=== PATIENT | female | born 1950 | race Caucasian/White ===

== ENCOUNTER 2016-09-08 02:24 | Emergency (ER) | payer BC ==
[~2016-09-08] VITALS: Ht 152.4 cm; Wt 90.7 kg
[2016-09-08 02:30] VITALS: BP 152/67; PULSE 87; RESP 19; TEMP 98.3; O2SAT 98
[2016-09-08 03:57] VITALS: BP 145/64; PULSE 86; RESP 19; TEMP 98.3; O2SAT 98
== END 2016-09-08 03:57 | disposition home or self-care (01) ==
LOC: SED 02:24
DX: M25.562 Pain in left knee (principal); R06.00 Dyspnea, unspecified; Z88.0 Allergy status to penicillin; W01.0XXA Fall on same level from slipping, tripping and stumbling without subsequent striking against object, initial encounter; Y93.89 Activity, other specified; Y92.89 Other specified places as the place of occurrence of the external cause; Y99.8 Other external cause status
CPT/HCPCS: 73564; 99284

== ENCOUNTER 2022-04-28 17:08 | Emergency (ER) | payer BC, OTHER ==
[~2022-04-28] VITALS: Ht 152.4 cm; Wt 89.8 kg
[2022-04-28 17:17] VITALS: BP_SYST 176
--- NOTE | 2022-04-28 17:30 | NUR ---
Pt brought by self,A&Ox4, pt presents to ER with R wrist pain and swelling after trip and fall, skin pink and warm, cap refill <3, VSS, will cont to monitor.
--- NOTE | 2022-04-28 18:00 | NUR ---
Placed in room H2 . Placed on director of cardiac cath lab, blood pressure machine and pulse oximeter. To gown for exam. Side rails up.
--- NOTE | 2022-04-28 18:01 | NUR ---
Dr Reyes evaluating patient at bedside
--- NOTE | 2022-04-28 18:03 | NUR ---
Pt bib self from home. CC right hand pain. Right hand with swelling, tissue tenderness to touch, pain 7/10.
--- NOTE | 2022-04-28 18:10 | NUR ---
RADHA Truong placing sugar tong splint to right arm with maria d bandage wrap and silk tape.
[2022-04-28] MEDS ORDERED: IBUP-1970 PO ×2 (18:14→18:34)
[2022-04-28] MEDS ORDERED: HYDR-3917 PO ×2 (18:14→18:34)
[2022-04-28] MEDS ORDERED: HYDROcodone/ACETAMIN 5-325 MG TAB (NORCO/ VICODIN) PO ONE (18:30)
[2022-04-28] MEDS ORDERED: IBUPROFEN 600 MG TABLET PO ONE (18:30)
--- NOTE | 2022-04-28 18:40 | NUR ---
Patient given written and verbal discharge instructions and verbalizes understanding. ER MD discussed with patient the results and treatment provided. Patient in stable condition. ID arm band removed. Rx of NORCO AND IBUPROFEN given. Patient educated on pain management and to follow up with PMD. Opportunity for questions provided and answered. Medication side effect fact sheet provided.
[2022-04-28 19:06] VITALS: BP_SYST 168
== END 2022-04-28 18:45 | disposition home or self-care (01) ==
LOC: SED 17:08
DX: S72.351A Displaced comminuted fracture of shaft of right femur, initial encounter for closed fracture (principal); S52.611A Displaced fracture of right ulna styloid process, initial encounter for closed fracture; Z88.0 Allergy status to penicillin; Z79.899 Other long term (current) drug therapy; W01.0XXA Fall on same level from slipping, tripping and stumbling without subsequent striking against object, initial encounter; Y93.89 Activity, other specified; Y92.89 Other specified places as the place of occurrence of the external cause; Y99.8 Other external cause status
CPT/HCPCS: 99283

== ENCOUNTER 2022-05-09 05:35 | Day surgery (SDC) | payer BC, OTHER ==
[2022-05-04 13:26] LABS: INR 0.9 (0.8-1.2); PROTHROMBIN TIME 9.4 SECS (9.5-12.5)
[2022-05-04 13:33] LABS: ALBUMIN 3.3 g/dL (3.4-4.8); CREATININE 0.7 mg/dL (0.55-1.30); TOTAL BILIRUBIN 0.6 mg/dL (0.0-1.0)
[2022-05-04 14:13] LABS: BILIRUBIN,URINE NEGATIVE (NEGATIVE); COLOR,URINE YELLOW (YELLOW); GLUCOSE,URINE NEGATIVE (NEGATIVE); KETONES,URINE NEGATIVE (NEGATIVE); NITRITE, URINE POSITIVE (NEGATIVE); PH,URINE 5.5 (5.0-8.0); PROTEIN URINE 1+ (NEGATIVE); UROBILINOGEN,URINE 0.2 (0.2-1.0)
[2022-05-04 14:22] LABS: BLOOD, URINE TRACE (NEGATIVE); CLARITY/URINE HAZY (CLEAR); LEUKOCYTE ESTERASE ,URINE 1+ (NEGATIVE)
[2022-05-04 14:23] LABS: BACTERIA,URINE MANY /HPF (None Seen); RBC,URINE 0-3 /HPF (0-3)
[2022-05-04 14:24] LABS: MUCUS,URINE None Seen /LPF (None Seen); OTHER CASTS, URINE CELLULAR 0-2 /LPF (None Seen)
[~2022-05-09] VITALS: Ht 152.4 cm; Wt 89.8 kg
[~2022-05-09 05:35] MED LIST: HYDR-3917 PO; IBUP-1970 PO
[2022-05-09] MEDS ORDERED: ROCURONIUM BROMIDE 10 MG/ML (ZEMURON) IV ONE (07:49)
[2022-05-09] MEDS ORDERED: fentaNYL CITRATE 250 MCG/5 ML AMP IV ONE (07:49)
[2022-05-09] MEDS ORDERED: PROPOFOL 200MG/ 20ML VIAL (DIPRIVAN) IV ONE (07:49)
[2022-05-09] MEDS ORDERED: LR 1,000 ML IV.SOLN IV ONE (07:49)
[2022-05-09] MEDS ORDERED: CEFAZOLIN 2 GM IVPB PREMIX 50 ML IV ONE (07:49)
[2022-05-09] MEDS ORDERED: DEXAMETHASONE SOD PHOSPHATE 4 MG/ML VIAL IVP ONE (07:49)
[2022-05-09] MEDS ORDERED: KETOROLAC TROMETHAMINE 30 MG VIAL IVP ONE (07:49)
[2022-05-09] MEDS ORDERED: SUGAMMADEX SODIUM 200 MG/2 ML VIAL IV ONE (07:49)
[2022-05-09] MEDS ORDERED: DESFLURANE 15 MIN GAS INH ONE (07:49)
[2022-05-09] MEDS ORDERED: MIDAZOLAM HCL 5 MG/5 ML VIAL IVP ONE (07:49)
[2022-05-09] MEDS ORDERED: NS IRRIG SOLN 1000 ML IR ONE (07:49)
[2022-05-09] MEDS ORDERED: ONDANSETRON HCL 4 MG/2 ML VIAL IVP ONE (07:49)
[2022-05-09] MEDS ORDERED: BUPIVACAINE /EPINEPHRINE/PF 0.25% 30 ML VIAL INJ ONE (07:49)
[2022-05-09] MEDS ORDERED: LABETALOL 100 MG/ 20ML VIAL IVP PRN (08:45)
[2022-05-09] MEDS ORDERED: METOCLOPRAMIDE HCL 10 MG/2 ML VIAL IVP PRN (08:45)
[2022-05-09] MEDS ORDERED: MIDAZOLAM HCL 2 MG/2 ML VIAL (VERSED) IVP PRN (08:45)
[2022-05-09] MEDS ORDERED: LR 1,000 ML IV SCH (08:45)
[2022-05-09] MEDS ORDERED: HYDROmorphone 1 MG/ML INJ. CARTRIDGE IVP PRN ×2 (08:45)
[2022-05-09] MEDS ORDERED: MEPERIDINE HCL/PF 25 MG/ML DISP.SYRIN IVP PRN (08:45)
[2022-05-09] MEDS ORDERED: HYDROmorphone 1 MG/ML INJ. CARTRIDGE ONE (10:47)
[2022-05-09 13:21] VITALS: BP_SYST 162
== END 2022-05-09 12:55 | disposition home or self-care (01) ==
LOC: SMU 05:35 → SDS 05:35
PROVIDERS: ATTEND Student in an Organized Health Care Education/Training Program
DX: S52.501A Unspecified fracture of the lower end of right radius, initial encounter for closed fracture (principal); M17.0 Bilateral primary osteoarthritis of knee; Z79.01 Long term (current) use of anticoagulants; W19.XXXA Unspecified fall, initial encounter; Y93.89 Activity, other specified; Y92.89 Other specified places as the place of occurrence of the external cause; Y99.8 Other external cause status; Z20.822 Contact with and (suspected) exposure to COVID-19
CPT/HCPCS: 80053; 81000; 85610; 85730; 36415 ×2; 25609; 76000; 87426; U0003; J3490 ×2; J0690; J1100; J1885; J2250; J2405; J2704; J3010; J1170; J7120; C1769; C1713 ×9; 76001

== ENCOUNTER 2023-01-14 05:25 | Inpatient (IN) | payer BC, OTHER ==
[2023-01-08 10:15] LABS: BASOPHILS # (AUTO) 0.1 K/uL (0.0-0.2); BASOPHILS % (AUTO) 1.2 % (0.0-2.0); EOSINOPHILS # (AUTO) 0.3 K/uL (0.0-0.4); EOSINOPHILS % (AUTO) 3.9 % (0.0-4.0); HEMATOCRIT 46.7 % (36-48); HEMOGLOBIN 15.5 g/dL (12.0-16.0); LYMPHOCYTES # (AUTO) 1.7 K/uL (1.0-5.5); LYMPHOCYTES % (AUTO) 23.4 % (20.5-51.5); MEAN CORPUSCULAR HEMOGLOBIN 31 pg (27-31); MEAN CORPUSCULAR HGB CONC 33 % (32-36); MEAN CORPUSCULAR VOLUME 92 fL (79.0-98.0); MONOCYTES # (AUTO) 0.3 K/uL (0.0-1.0); MONOCYTES % (AUTO) 4.8 % (1.7-9.3); NEUTROPHILS # (AUTO) 4.8 K/uL (1.8-7.7); NEUTROPHILS % (AUTO) 66.7 % (40.0-70.0); PLATELET COUNT (AUTO) 298 K/uL (130-430); RED BLOOD CELL COUNT(AUTO) 5.05 MIL/uL (4.2-6.2); RED CELL DISTRIBUTION WIDTH 13.2 % (9.0-15.0); WHITE BLOOD COUNT (AUTO) 7.2 K/uL (4.8-10.8)
[2023-01-08 10:27] LABS: ALBUMIN 3.5 g/dL (3.4-4.8); CALCIUM 8.9 mg/dL (8.4-11.0); CREATININE 0.84 mg/dL (0.55-1.30); PROTHROMBIN TIME 9.9 SECS (9.5-12.5); TOTAL BILIRUBIN 0.7 mg/dL (0.0-1.0); TOTAL PROTEIN, SERUM 7.7 g/dL (6.4-8.3)
[~2023-01-14] VITALS: Ht 152.4 cm; Wt 89.8 kg
[2023-01-14] MEDS ORDERED: ACETAMINOPHEN 500 MG TABLET ONE (05:49)
[2023-01-14] MEDS ORDERED: oxyCODONE HCL 10 MG TAB.ER.12H PO ONE ×2 (05:50→06:00)
[2023-01-14] MEDS ORDERED: SCOPOLAMINE HYDROBROMIDE 1 MG PATCH .72 H (TRANSDERM-SCOP) TD ONE ×2 (05:50→06:00)
[2023-01-14] MEDS ORDERED: CELECOXIB 200 MG CAPSULE ONE (05:50)
[2023-01-14] MEDS ORDERED: CELECOXIB 200 MG CAPSULE PO ONE (06:00)
[2023-01-14] MEDS ORDERED: GABAPENTIN 400 MG CAPSULE PO ONE (06:00)
[2023-01-14] MEDS ORDERED: ACETAMINOPHEN 500 MG TABLET PO ONE (06:00)
[2023-01-14] MEDS ORDERED: CEFAZOLIN SOD 2 GM in D5W 50 ML IV ONE (07:15)
[2023-01-14] MEDS ORDERED: METOCLOPRAMIDE HCL 10 MG/2 ML VIAL IVP PRN ×2 (07:30→09:00)
[2023-01-14] MEDS ORDERED: LACTULOSE 20 GM/30 ML UDC PO PRN (07:30)
[2023-01-14] MEDS ORDERED: DIPHENHYDRAMINE HCL 25 MG CAPSULE PO PRN (07:30)
[2023-01-14] MEDS ORDERED: NALOXONE HCL 0.4 MG/ML AMP (NARCAN) IVP PRN ×4 (07:30→09:00)
[2023-01-14] MEDS ORDERED: BISACODYL 10 MG/SUPPOSITORY RC PRN (07:30)
[2023-01-14] MEDS ORDERED: TRANEXAMIC ACID 1,000 MG/10 ML VIAL ONE (08:00)
[2023-01-14] MEDS ORDERED: BUPIVACAINE /PF 0.5% 30 ML VIAL ONE (08:00)
[2023-01-14] MEDS ORDERED: MORPHINE SULFATE 10MG/10ML PF AMP ONE (08:00)
[2023-01-14] MEDS ORDERED: NS 1000 ML IV.SOLN IV ONE (08:00)
[2023-01-14] MEDS ORDERED: NS IRRIG SOLN 1000 ML IR ONE (08:00)
[2023-01-14] MEDS ORDERED: VANCOMYCIN HCL 1000 MG/VIAL IV ONE (08:00)
[2023-01-14] MEDS ORDERED: ONDANSETRON HCL 4 MG/2 ML VIAL ONE (08:00)
[2023-01-14] MEDS ORDERED: MIDAZOLAM HCL/PF 2 MG/2 ML SYRINGE ONE (08:00)
[2023-01-14] MEDS ORDERED: LR 1,000 ML IV.SOLN IV ONE (08:00)
[2023-01-14] MEDS ORDERED: WATER FOR IRRIGATION,STERILE 1,000 ML IRRIG.SOLN IR ONE (08:00)
[2023-01-14] MEDS ORDERED: DEXAMETHASONE SOD PHOSPHATE 4 MG/ML VIAL ONE (08:00)
[2023-01-14] MEDS ORDERED: PHENYLEPHRINE HCL 10 MG/ML VIAL (NEOSYNEPHRINE) ONE (08:00)
[2023-01-14] MEDS ORDERED: hydrALAZINE HCL 20 MG/ML VIAL IVP PRN (09:00)
[2023-01-14] MEDS ORDERED: DIPHENHYDRAMINE INJ 50 MG/ML VIAL IVP PRN (09:00)
[2023-01-14] MEDS ORDERED: HYDROmorphone 1 MG/ML INJ. CARTRIDGE IVP PRN ×5 (09:00→11:00)
[2023-01-14] MEDS ORDERED: ONDANSETRON HCL 4 MG/2 ML VIAL IVP PRN ×2 (09:00→11:45)
[2023-01-14] MEDS ORDERED: LR 1,000 ML IV SCH (09:00)
[2023-01-14] MEDS ORDERED: MEPERIDINE HCL/PF 25 MG/ML DISP.SYRIN IVP PRN (09:00)
[2023-01-14] MEDS ORDERED: LABETALOL 100 MG/ 20ML VIAL IVP PRN (09:00)
[2023-01-14] MEDS ORDERED: DECADRON 4 MG TABLET PO ONE (11:00)
[2023-01-14] MEDS ORDERED: oxyCODONE HCL 5 MG TABLET PO PRN ×2 (11:00)
[2023-01-14] MEDS ORDERED: traMADol HCL HCL 50 MG TABLET (ULTRAM) PO PRN (11:00)
[2023-01-14] MEDS ORDERED: LORATADINE 10 MG TABLET PO PRN (11:00)
[2023-01-14] MEDS ORDERED: VITD400 PO (11:52)
[2023-01-14] MEDS ORDERED: MULT-1164 PO (11:52)
[2023-01-14] MEDS: ceFAZolin SODIUM 2 GM in D5W 100 ML IV SCH ×2 (13:36→14:01)
[2023-01-14] MEDS: KETOROLAC TROMETHAMINE 10 MG TABLET (TORADOL) PO SCH ×2 (14:00→21:19)
[2023-01-14] MEDS: ACETAMINOPHEN 500 MG TABLET PO SCH ×2 (15:00→21:20)
[2023-01-14 17:38] VITALS: BP_SYST 117; PULSE 66; RESP 12; TEMP 96.9; O2SAT 95
[2023-01-14 20:00] VITALS: BP_SYST 140; PULSE 77; RESP 18; TEMP 97.7; O2SAT 99
[2023-01-14] MEDS: SENNOSIDES/DOCUSATE SODIUM 1 TAB TABLET(SENOKOT-S) PO SCH (21:20)
[2023-01-15 00:53] VITALS: BP_SYST 114; PULSE 61; RESP 16; TEMP 96.4; O2SAT 99
[2023-01-15] MEDS: ceFAZolin SODIUM 2 GM in D5W 100 ML IV SCH (03:34)
[2023-01-15 05:24] LABS: BASOPHILS % (AUTO) 0.1 % (0.0-2.0); HEMATOCRIT 40.1 % (36-48); HEMOGLOBIN 12.7 g/dL (12.0-16.0); LYMPHOCYTES # (AUTO) 0.8 K/uL (1.0-5.5); LYMPHOCYTES % (AUTO) 5.7 % (20.5-51.5); MEAN CORPUSCULAR HEMOGLOBIN 30 pg (27-31); MEAN CORPUSCULAR HGB CONC 32 % (32-36); MEAN CORPUSCULAR VOLUME 94 fL (79.0-98.0); MONOCYTES # (AUTO) 0.4 K/uL (0.0-1.0); MONOCYTES % (AUTO) 2.8 % (1.7-9.3); NEUTROPHILS # (AUTO) 13.1 K/uL (1.8-7.7); NEUTROPHILS % (AUTO) 91.4 % (40.0-70.0); PLATELET COUNT (AUTO) 218 K/uL (130-430); RED BLOOD CELL COUNT(AUTO) 4.28 MIL/uL (4.2-6.2); RED CELL DISTRIBUTION WIDTH 13.2 % (9.0-15.0); WHITE BLOOD COUNT (AUTO) 14.3 K/uL (4.8-10.8)
[2023-01-15 05:40] LABS: ALBUMIN 2.7 g/dL (3.4-4.8); CALCIUM 8.5 mg/dL (8.4-11.0); CREATININE 1.13 mg/dL (0.55-1.30); POTASSIUM 4.9 mmol/L (3.5-5.1); TOTAL BILIRUBIN 0.5 mg/dL (0.0-1.0); TOTAL PROTEIN, SERUM 6.2 g/dL (6.4-8.3)
[2023-01-15] MEDS: ACETAMINOPHEN 500 MG TABLET PO SCH ×2 (05:54→13:33)
[2023-01-15] MEDS: KETOROLAC TROMETHAMINE 10 MG TABLET (TORADOL) PO SCH (05:55)
[2023-01-15] MEDS ORDERED: OXYIR5 PO (07:58)
[2023-01-15] MEDS ORDERED: CELE200C PO (07:58)
[2023-01-15] MEDS ORDERED: ASA81 PO (07:58)
[2023-01-15] MEDS ORDERED: CEFA250S32 PO (07:58)
[2023-01-15] MEDS ORDERED: ACET-2634 PO (07:58)
[2023-01-15 08:00] VITALS: BP_SYST 110; PULSE 61; RESP 18; TEMP 98.1; O2SAT 96
[2023-01-15] MEDS ORDERED: ASPIRIN 81 MG TAB.CHEW PO SCH (09:00)
[2023-01-15] MEDS ORDERED: DECADRON 4 MG TABLET PO SCH (09:00)
[2023-01-15] MEDS: SENNOSIDES/DOCUSATE SODIUM 1 TAB TABLET(SENOKOT-S) PO SCH (09:38)
[2023-01-15] MEDS ORDERED: CELECOXIB 200 MG CAPSULE PO SCH (11:00)
[2023-01-15 11:52] VITALS: BP_SYST 116; PULSE 71; RESP 18; TEMP 97.9; O2SAT 97
[2023-01-15 16:00] VITALS: BP_SYST 126; PULSE 74; RESP 18; TEMP 98; O2SAT 96
[2023-01-15 16:33] VITALS: BP_SYST 128; PULSE 77; RESP 18; TEMP 98.3; O2SAT 96
== END 2023-01-15 19:05 | DRG 470 ==
LOC: SMU 05:25
PROVIDERS: ADMIT Student in an Organized Health Care Education/Training Program; ATTEND Student in an Organized Health Care Education/Training Program
PROC: 3E0T3BZ Introduction of Anesthetic Agent into Peripheral Nerves and Plexi, Percutaneous Approach (ICD-10-PCS; 2023-01-14)
PROC: 0SRD0J9 Replacement of Left Knee Joint with Synthetic Substitute, Cemented, Open Approach (ICD-10-PCS; principal; 2023-01-14 08:37)
DX: M17.12 Unilateral primary osteoarthritis, left knee (principal); E66.9 Obesity, unspecified; Z88.0 Allergy status to penicillin; Z90.49 Acquired absence of other specified parts of digestive tract; Z90.710 Acquired absence of both cervix and uterus; Z98.891 History of uterine scar from previous surgery; Z68.38 Body mass index [BMI] 38.0-38.9, adult
CPT/HCPCS: 36415; 71046-TC; 73560-TC; 80053; 85025; 85610-TC; 85730-TC; 87081; 88305; 88311; 96379; 97116-GP; 97163-GP; 97530-GP; C1776; J0690; J1100; J2274; J2370; J2405; J3370; J3465; J3490; J7030; J7060; J7120; J8540